=== PATIENT | male | born 1945 | race Caucasian/White ===

== ENCOUNTER 2019-10-24 12:12 | Outpatient (CLI) | payer MEDICARE, SELFPAY ==
--- NOTE | ~2019-10-24 | XR_ITS ---
EXAMINATION: XR abdomen/kub 1V EXAM DATE: 10/24/2019 12:40 INDICATION: Kidney stones. TECHNIQUE: Frontal projection of the upper abdomen, frontal projection lower abdomen/pelvis for inter pretation. Comparison is made to prior examination from 06/11/2017. FINDINGS: Calcifications projecting over both kidneys, probably multiple renal stones measuring up t o about 7 mm on the left and 6 mm on the right. Sternotomy wires. Moderate amount of colonic stool an d gas. No small bowel dilation. Mild to moderate lumbar spondylosis. IMPRESSION: Probable bilateral nephrolithiasis. Reviewed, dictated and finalized at location A.
== END 2019-10-24 12:13 | disposition home or self-care (01) ==
PROVIDERS: PCP Family Medicine; Visit Provider Urology
DX: Z87.442 Personal history of urinary calculi (principal)
CPT/HCPCS: 74018

== ENCOUNTER 2020-01-02 09:45 | Outpatient (CLI) | payer MEDICARE, SELFPAY ==
--- NOTE | ~2020-01-02 | XR_ITS ---
XR abdomen/kub 1V 01/02/2020 09:59 Indication: History of kidney stone Procedure: KUB Comparison: Comparison to multiple prior studies sequentially, with oldest reviewed study dated 03/2016. Findings: There are multiple bilateral renal stones which are obscured by bowel content. Large amount of residual gas present in the small bowel and colon, likely ileus. Moderate lumbar spondylosis. Impression: 1: Bilateral nephrolithiasis. 2: Moderate gas in the small bowel and colon, likely ileus. Reviewed, dictated and finalized at location B. Impression: 1: Bilateral nephrolithiasis. 2: Moderate gas in the small bowel and colon, likely ileus.
== END 2020-01-02 09:46 | disposition home or self-care (01) ==
PROVIDERS: PCP Family Medicine; Visit Provider Urology
DX: N20.0 Calculus of kidney (principal)
CPT/HCPCS: 74018

== ENCOUNTER 2020-01-15 10:12 | Outpatient (CLI) | payer MEDICARE, SELFPAY ==
--- NOTE | 2020-01-15 10:16 | ECG_ITS ---
Measurements Intervals [place] Rate: 56 P: -81 [place]: 136 QRS: 101 QRSD: 150 T: 51 QT: 408 QTc: 394 Interpretive Statements ECTOPIC ATRIAL BRADYCARDIA ATRIAL PREMATURE COMPLEX RIGHT AXIS DEVIATION RIGHT BUNDLE BRANCH BLOCK BASELINE ARTIFACT- I, III, AVL ABNORMAL ECG Electronically Signed On 01-15-2020 10:59:13 FIELD SERVICE ANALYST by Bryce Judd D.O.
[2020-01-15 10:57] LABS: Partial Thromboplastin Time 24.1 SECONDS (22.3-36.8)
[2020-01-15 11:01] LABS: Prothrombin Time 13.1 Seconds (11.1-14.7)
== END 2020-01-15 10:13 | disposition home or self-care (01) ==
PROVIDERS: PCP Family Medicine; Visit Provider Urology
DX: N20.0 Calculus of kidney (principal); I10 Essential (primary) hypertension; Z01.818 Encounter for other preprocedural examination; I45.10 Unspecified right bundle-branch block
CPT/HCPCS: 36415; 85610; 85730; 87086; 93005

== ENCOUNTER 2020-01-17 01:52 | Outpatient (CLI) | payer MEDICARE, SELFPAY ==
[2020-01-17 22:35] LABS: SARS-CoV-2 RNA PCR Negative
== END 2020-01-17 01:53 | disposition home or self-care (01) ==
LOC: ANHCOVIDDT 01:53
PROVIDERS: PCP Family Medicine; Visit Provider Urology
DX: Z01.812 Encounter for preprocedural laboratory examination (principal); Z11.59 Encounter for screening for other viral diseases
CPT/HCPCS: 87635; C9803; U0003

== ENCOUNTER 2020-01-19 02:55 | Day surgery (SDC) | payer MEDICARE, SELFPAY ==
[2020-01-12 13:29] VITALS: BMI 23.3
--- NOTE | 2020-01-16 09:09 | P.HP_ITS ---
History of Present Illness History of Present Illness Consent: Risks, benefits, and alternatives have been discussed and questions answered. Patient agrees to proceed with procedure. Chief complaint: Left Renal Stone Narrative: Rahul Turner is a 74 year old male with a history of urolithiasis requiring ESWL 1 prior occasion. He recently presented with atypical discomfort and transient gross hematuria. After management of constipation he continues to have left-sided flank pain and we made decision to treat his left renal stones with ESWL. He has stones in the left kidney measuring up to 6 mm. Review of Systems Cardiovascular: Cardiovascular: Denies chest pain, Denies lightheadedness, De nies palpitations and Denies dyspnea Respiratory: Respiratory: Denies dyspnea Gastrointestinal: Gastrointestinal: Denies diarrhea, Denies nausea and Denies vomiting Genitourinary: Genitourinary: Denies hematuria and Denies dysuria Endocrine: Endocrine: Denies palpitations [facility] Social History Social History Smoking packs per day: 1.5 Smoking cigarettes per day: 30.0 Years smoked: 45 Smoking pack-years: 67.50 Smoking status: Former smoker Smoking end date: 09/12/06 Alcohol intake: former Substance use: never Spiritual care concerns: No Meds Home Medications and Allergies Home Medications Medication Instructions Recorded Confirmed Type amoxicillin 500 mg PO QAM 01/12/20 01/12/20 History aspirin 81 mg PO DAILY 01/12/20 01/12/20 History ripzicuon-ikyobuyp-vuialxi ala 1 tablet PO DAILY 01/12/20 01/12/20 History [Biktarvy] carvedilol 12.5 mg PO BID 01/12/20 01/12/20 History cilostazol 100 mg PO BID 01/12/20 01/12/20 History doxepin 25 mg PO HS 01/12/20 01/12/20 History fluoxetine 20 mg PO QAM 01/12/20 01/12/20 History lisinopril 40 mg PO QAM 01/12/20 01/12/20 History omeprazole 20 mg PO QPM 01/12/20 01/12/20 History simvastatin 40 mg PO QPM 01/12/20 01/12/20 History terazosin 5 mg PO QPM 10/30/20 10/30/20 History Allergies Allergy/AdvReac Type Severity Reaction Status Date / Time No Known Allergies Allergy Unverified 01/12/20 13:28 Exam Const: General: no acute distress Resp: Effort & Inspection: normal respiratory effort GI: Inspection: non-distended GI Palp: No abdominal tenderness and No Guarding due to palpation present (GI) Auscultation: normal bowel sounds Assessment and Plan Assessment and plan (1) Bilateral kidney stones: Code(s): N20.0 - Calculus of kidney Status: Acute Assessment and Plan: * Bilateral kidney stones measuring up to 6 mm in the left kidney. * Plan today for left ESWL
--- NOTE | 2020-01-18 12:35 | WPDANESEPPF ---
Anes - Initial Pre Proc Eval Procedure: Operation Date: 01/19/20 09:30 Proposed Procedures p Left Renal Extracorporeal Shock Wave Lithotripsy - Donal Archer MD Date/Time: 01/18/20 12:35 Surgeon: Donal Archer MD Pre Op Diagnosis: Left Renal Stone Patient Data Age: 74 Gender: M Height: 1.78 m Weight: 74 kg Allergies Allergy/AdvReac Type Severity Reaction Status Date / Time No Known Allergies Allergy Unverified 01/19/20 08:26 Home Medications Medication Instructions Recorded Confirmed Type amoxicillin 500 mg PO QAM 01/12/20 01/19/20 History aspirin 81 mg PO DAILY 01/12/20 01/19/20 History dqskxpggl-ojtjmepm-txsljzu ala 1 tablet PO DAILY 01/12/20 01/19/20 History [Biktarvy] carvedilol 12.5 mg PO BID 01/12/20 01/19/20 History cilostazol 100 mg PO BID 01/12/20 01/19/20 History doxepin 25 mg PO HS 01/12/20 01/19/20 History fluoxetine 20 mg PO QAM 01/12/20 01/19/20 History lisinopril 40 mg PO QAM 01/12/20 01/19/20 History omeprazole 20 mg PO QPM 01/12/20 01/19/20 History simvastatin 40 mg PO QPM 01/12/20 01/19/20 History terazosin 5 mg PO QPM 01/12/20 01/19/20 History ECG: Date of Service: 01/15/20 Procedure(s): CA 12 lead EKG Accession Number(s): [id number] cc: ~ Measurements Intervals [place] Rate: 56 P: -81 [place]: 136 QRS: 101 QRSD: 150 T: 51 QT: 408 QTc: 394 Interpretive Statements ECTOPIC ATRIAL BRADYCARDIA ATRIAL PREMATURE COMPLEX RIGHT AXIS DEVIATION RIGHT BUNDLE BRANCH BLOCK BASELINE ARTIFACT- I, III, AVL ABNORMAL ECG Electronically Signed On 01-15-2020 10:59:13 PROFESSOR OF COMMUNICATION ARTS by Bryce Judd D.O. Dictated By: Bryce Judd DO 01/15/20 1057 Patient hx anesthesia problems: none Family hx anesthesia problems: none PMFSH Past Medical History Medical History Chronic GERD Depression History of right common carotid artery stent placement HIV (human immunodeficiency virus infection) HTN (hypertension) Hx of myocardial infarction PVD (peripheral vascular disease) Smoker Surgical History Surgical History (Updated 01/18/20 @ 12:37 by Lior Renee MD) S/P CABG x 4 Social History Social History Smoking packs per day: 1.5 Smoking cigarettes per day: 30.0 Years smoked: 45 Smoking pack-years: 67.50 Smoking status: Former smoker Smoking end date: 09/12/06 Alcohol intake: former Alcohol use details: QUIT 38 YEARS AGO, [employer] Substance use: never Living arrangements: alone Spiritual care concerns: No Anes - Eval Final PreProcedure Day of Procedure 01/18/20 12:35 Patient weight: normal Heart: regular rate and rhythm Lungs: clear to auscultation and normal air movement Airway: Mallampati scale class II Neurological: alert and oriented Last oral intake: >/= 8 hours ASA classification: III Emergent: no Anesthetic plan: proceed Anesthesia type and monitoring: general LMA Informed Consent: The patient's anesthetic plan and its attendant risks and benefits were discussed with the patient/family/POA. Questions were solicited and answers provided to the satisfaction of the patient/family/POA.
[2020-01-19] VITALS (7 sets, daily range): BP systolic 131–166; BP diastolic 60–79; PULSE 51–78; RESP 10–18; TEMP 36.1; O2SAT 98–100
--- NOTE | ~2020-01-19 | XR_ITS ---
EXAMINATION: XR abdomen/kub 1V INDICATION: Nephrolithiasis TECHNIQUE: Supine views of the abdomen were obtained on 2 radiographs. COMPARISON: 01/02/2020 FINDINGS: There is a 7 mm stone projecting at the expected location of the left ureterovesicular junc tion. Stones measuring up to 5 mm are scattered throughout the left kidney. There is a 7 mm stone of the right mid kidney. The bowel gas pattern is normal. There are no dilated loops of bowel. Moderate lumbar spondylosis is noted. IMPRESSION: 1. 7 mm stone projecting at the expected location of the left ureterovesicular junction. 2. Bilateral nephrolithiasis. Reviewed, dictated and finalized at location A. ICE CHECKER
--- NOTE | 2020-01-19 06:32 | WPDHPUPDATE1 ---
History and Physical Update Update Date/Time: 01/19/20 06:32 History and Physical has been reviewed, including an updated exam of the patient. There are NO changes in the patient's condition. Risks, benefits, and alternatives have been discussed and questions answered. Patient agrees to proceed with procedure.
[2020-01-19] MEDS: LACTATED RINGERS 1,000 ML 30 ML IV CONT ×2 (08:09→10:21)
[2020-01-19] MEDS: ceFAZolin 2 GM/D5W 50 ML 2 GM/50 ML BAG IVPB (09:37)
--- NOTE | 2020-01-19 09:48 | PM.PROC ---
Procedure Note - Detailed Date of procedure: 01/19/20 Pre-op diagnosis: Left Renal Stone Post-op diagnosis: same Procedure performed: Left ESWL Description of procedure: The patient was brought to the operative suite where he was placed in the supine position on the Dornier lithotripsy table. The focal point of the lithotripter was placed at a collection of stones in the left upper pole. A total of 2500 shocks were delivered at a power setting of 4. There appeared to be good fragmentation of the stone. The patient tolerated the procedure well and was taken to the recovery room in good condition. Anesthesia: GLMA Surgeon: Donal Archer MD Estimated blood loss (mL): 0 Drains: No Packing: No Pathology: none sent Complications: No immediate complications Condition: stable Disposition: PACU
== END 2020-01-19 12:10 | disposition home or self-care (01) ==
PROVIDERS: PCP Family Medicine; Visit Provider Urology
PROC: (CPT 50590; principal; 2020-01-19 09:30)
DX: N20.0 Calculus of kidney (principal); K21.9 Gastro-esophageal reflux disease without esophagitis; I10 Essential (primary) hypertension; Z21 Asymptomatic human immunodeficiency virus [HIV] infection status; I73.9 Peripheral vascular disease, unspecified; F32.9 Major depressive disorder, single episode, unspecified; Z95.5 Presence of coronary angioplasty implant and graft; Z95.1 Presence of aortocoronary bypass graft; I25.2 Old myocardial infarction; Z87.891 Personal history of nicotine dependence
CPT/HCPCS: 50590; 36415; 74018; 85610; 85730; 87086; 93005; J0690; J2250; J2405; J2704; J3010; J7120

== ENCOUNTER 2020-01-31 10:33 | Outpatient (CLI) | payer MEDICARE, SELFPAY ==
--- NOTE | ~2020-01-31 | XR_ITS ---
XR abdomen/kub 1V DATE: 01/31/2020 11:09 INDICATION: Kidney stones TECHNIQUE: AP projection, 2 views COMPARISON: 01/19/2020 KUB FINDINGS: Multiple bilateral renal calcified calculi are again noted. Approximately 3 mm and 7 mm calcifications overlying the lower mid pelvis; calcified urinary bladder stones are not excluded. There is a prominent amount of fecal material in the colon. There are multiple gas containing small b owel segments suggesting adynamic ileus, less likely bowel obstruction. The psoas shadows are intact. No visceromegaly is evident. There is abdominal aortic and iliac arterial calcification. Status post sternotomy. Degenerative changes of the thoracic and lumbar spine. IMPRESSION: Multiple gas distended small bowel segments which may be secondary to adynamic ileus, les s likely obstruction Prominent amount of fecal material within the colon Bilateral nephrolithiasis Two calcifications overlie the urinary bladder; bladder stones are not excluded. Reviewed, dictated and finalized at Location A. Reviewed, dictated and finalized at location B. WORKER IMPRESSION: Multiple gas distended small bowel segments which may be secondary to adynamic ileus, less likely obstruction Prominent amount of fecal material within the colon Bilateral nephrolithiasis Two calcifications overlie the urinary bladder; bladder stones are not excluded .
== END 2020-01-31 10:34 | disposition home or self-care (01) ==
LOC: ANHIMG 10:36
PROVIDERS: PCP Family Medicine; Visit Provider Urology
DX: N20.0 Calculus of kidney (principal)
CPT/HCPCS: 74018

== ENCOUNTER 2020-07-27 11:23 | Outpatient (CLI) | payer MEDICARE, SELFPAY ==
--- NOTE | ~2020-07-27 | XR_ITS ---
XR abdomen/kub 1V DATE: 07/27/2020 11:44 INDICATION: Hematuria for 2 weeks. Bilateral kidney stones. TECHNIQUE: AP projection, 2 views COMPARISON: 01/31/2020 KUB FINDINGS: Calcifications overlie the renal silhouettes, which may be consistent with history of bilat eral kidney stones. One or 2 calcifications overlying the urinary bladder may indicate bladder stones . Noncontrast CT abdomen pelvis examination would be most optimal for evaluation of urinary tract luca culi. The psoas shadows are intact. No visceromegaly is evident. There is a moderately prominent of fecal material in the colon but no evidence of bowel obstruction. Multilevel degenerative disc disease of the lumbar spine. Degenerative spurring of the thoracic spine . Status post sternotomy. IMPRESSION: Possible kidney and bladder stones; consider noncontrast CT abdomen pelvis for more defin itive evaluation for urinary tract calculi Reviewed, dictated and finalized at Location A. Reviewed, dictated and finalized at location A. IMPRESSION: Possible kidney and bladder stones; consider noncontrast CT abdomen pelvis for more definitive evaluation for urinary tract calculi
== END 2020-07-27 11:24 | disposition home or self-care (01) ==
LOC: ANHIMG 11:36
PROVIDERS: PCP Family Medicine; Visit Provider Urology
DX: N20.0 Calculus of kidney (principal)
CPT/HCPCS: 74018

== ENCOUNTER 2020-08-01 13:26 | Outpatient (CLI) | payer MEDICARE, SELFPAY ==
--- NOTE | ~2020-08-01 | XR_ITS ---
EXAMINATION: XR abdomen/kub 1V INDICATION: Gross hematuria TECHNIQUE: Supine views of the abdomen were obtained on 2 radiographs. COMPARISON: CT from today and radiographs dated 07/27/2020 FINDINGS: Bowel contents project over the kidneys limiting sensitivity for renal stones. There are at least nine stones right kidney which measure 5 mm. There is a 3 mm stone in the left kidney lower po le. No stones are identified along the expected courses of the ureters. A 7 mm stone projects at the location of the bladder. A moderate volume of colonic stool is present. There are partially imaged ch anges of cardiac surgery. IMPRESSION: 1. Bilateral nephrolithiasis. Reviewed, dictated and finalized at location A.
--- NOTE | ~2020-08-01 | CT_ITS ---
EXAMINATION: CT abdomen pelvis wo/w con DATE: 08/01/2020 14:46 INDICATION: Gross hematuria TECHNIQUE: Computed tomography (CT) of the abdomen and pelvis was performed without and subsequently with 130 cc Omnipaque 350 intravenous contrast. Automated exposure control and iterative reconstructi on technique were employed. Exam dose: 1210.36 mGy-cm total exam DLP. COMPARISON: 08/01/2020 KUB FINDINGS: There is prominence of the interstitium and honeycombing in the peripheral lower lung zones suggesting usual interstitial pneumonia and possibly superimposed emphysema. There is minimal bilateral lower lobe dependent atelectasis. Status post sternotomy and probable coronary artery bypass graft surgery. Heart size is within normal range. No pericardial or pleural effusion. Scattered primarily left hepatic cyst measuring up to 1.5 cm.. Approximately 2 to 5 mm gallstones in the dependent aspect of the gallbladder fundus.. No pericholecy stic fluid or fat stranding. No bile duct dilatation. Normal splenic size. No pancreatic mass lesion or calcification or ductal dilatation. Probable left adrenal 1.5 cm adenoma. Normal right adrenal gland. Numerous bilateral nonobstructing renal calculi measuring up to approximately 7 mm maximal dimension bilaterally. No ureteral calculus or hydroureteronephrosis. There are several up to 6.5 mm stones in the dependent aspect of the urinary bladder. There are numerous bilateral renal cysts measuring up to 1.7 cm on the right with an up to 4.1 cm sep tated cyst on the left. Prostate enlargement and calcifications. This is likely responsible for mild diffuse bladder wall thi ckening. There is atherosclerotic calcification of the abdominal aorta but no aneurysm. No intraperitoneal or retroperitoneal or pelvic mass lesion or adenopathy or ascites. Prominent degenerative changes of the thoracic and lumbar spine. IMPRESSION hepatic cysts: Left adrenal 1.5 cm probable adenoma Multiple bilateral renal cysts Extensive bilateral nephrolithiasis No ureteral calculus or hydroureteronephrosis Dependent urinary bladder stones Cholelithiasis Usual interstitial pneumonia and/or emphysema Status post sternotomy and probable CABG Reviewed, dictated and finalized at Location A. Reviewed, dictated and finalized at location B. IMPRESSION hepatic cysts: Left adrenal 1.5 cm probable adenoma Multiple bilateral renal cysts Extensive bilateral nephrolithiasis No ureteral calculus or hydroureteronephrosis Dependent urinary bladder stones Cholelithiasis Usual interstitial pneumonia and/or emphysema Status post sternotomy and probable CABG
[2020-08-01 14:23] LABS: Estimated Glomerular Filt Rate 43
== END 2020-08-01 13:27 | disposition home or self-care (01) ==
PROVIDERS: PCP Family Medicine; Visit Provider Urology
DX: R31.0 Gross hematuria (principal); N20.0 Calculus of kidney; K76.89 Other specified diseases of liver; D35.02 Benign neoplasm of left adrenal gland; N28.1 Cyst of kidney, acquired; N21.0 Calculus in bladder; K80.20 Calculus of gallbladder without cholecystitis without obstruction; J91.8 Pleural effusion in other conditions classified elsewhere; Z95.1 Presence of aortocoronary bypass graft
CPT/HCPCS: 74018; 74178; Q9967

== ENCOUNTER 2021-02-04 10:18 | Outpatient (CLI) | payer MEDICARE, SELFPAY ==
--- NOTE | ~2021-02-04 | XR_ITS ---
EXAMINATION: XR abdomen/kub 1V EXAM DATE: 02/04/2021 10:41 INDICATION: Bilateral kidney stone follow-up. TECHNIQUE: Frontal projection(s) of the abdomen for interpretation. Comparison is made to prior exami nation from 08/01/2020. FINDINGS: Approximately 5 mm right inferior calyceal stone. Some smaller other calcific densities pr ojecting over both kidneys, which are also obscured by moderate amount of colonic stool and gas. Ther e are several densities project over the pelvis centrally up to about 7 mm, probably bladder stones. No small bowel dilation. Moderate bony degenerative changes. IMPRESSION: Bilateral nephrolithiasis. Bladder stones. Reviewed, dictated and finalized at location A. CIATE CIVIL ENGINEER
== END 2021-02-04 10:19 | disposition home or self-care (01) ==
LOC: ANHIMG 10:22
PROVIDERS: PCP Family Medicine; Visit Provider Urology
DX: N20.0 Calculus of kidney (principal)
CPT/HCPCS: 74018